=== PATIENT | female | born 1950 | race Caucasian/White ===

== ENCOUNTER 2018-09-16 12:50 | Outpatient (REF) | payer OTHER, MEDICARE, SELFPAY ==
--- NOTE | 2018-09-16 11:45 | PAPFT_PTH ---
PATIENT: Zoie Castellanos LOC: [facility]#:[id number] AGE/SX: 67/F ROOM: RE09/16/[address]: Roxane Moore : 1950 BED: DIS: 09/16/2018 SPEC #: [id number] RECD: 09/19/18 12:56 STATUS: ANA RECitlali #: [id number] EDGAR: 09/16/18 11:[address]: Rxoane Moore DEPT: [facility] Cytology RECD BY: Alyce Nguyen ENTERED: 09/19/18 12:57 SP TYPE: PAPFT KLAUDIA DR: Shaheen Moralez Tissues: 1 - CX/ENDOCX FOR PAP SMEARS Procedures: PAP THIN PREP/UVM Screening HPV DNA PROBE Comments: [id number]
== END 2018-09-16 13:10 ==
LOC: NCHCN 12:50
PROVIDERS: PCP Internal Medicine; Visit Provider Nurse Practitioner Family
DX: Z12.4 Encounter for screening for malignant neoplasm of cervix (principal); Z11.51 Encounter for screening for human papillomavirus (HPV); Z01.419 Encounter for gynecological examination (general) (routine) without abnormal findings
CPT/HCPCS: 88142; 87624

== ENCOUNTER 2018-09-23 00:35 | Outpatient (CLI) | payer OTHER, MEDICARE, SELFPAY ==
--- NOTE | 2018-09-23 10:36 | DI.MAMMO_ITS ---
SYMPTOM/DIAGNOSIS: SCREENING, Z12.39 MAMMOGRAMS: Mammograms were interpreted according to the usual protocol including computer analysis with CAD system, tomosynthesis and C view imaging. Comparison is made with prior examinations. Breast density, Category B. No suspicious masses or microcalcifications are seen. There is no definite evidence of malignancy. IMPRESSION: Negative mammogram. Routine screening is recommended. Category 1. MQSA ASSESSMENT OF FINDINGS: Negative. Category 1. Patient will receive a letter notifying them of these results. BI-RADS category B. There are scattered areas of fibroglandular density.
== END 2018-09-23 00:55 ==
PROVIDERS: PCP Internal Medicine; Visit Provider Nurse Practitioner Family
DX: Z12.31 Encounter for screening mammogram for malignant neoplasm of breast (principal)
CPT/HCPCS: 77063; 77067

== ENCOUNTER 2020-03-25 08:13 | Outpatient (CLI) | payer OTHER, MEDICARE, SELFPAY ==
--- NOTE | 2020-03-25 14:50 | DI.RAD_ITS ---
EXAM: XR KNEE LT 3V AP,LAT,ANU CLINICAL HISTORY: LT KNEE OA,M17.9, LT KNEE PAIN. TECHNIQUE: 2D digital imaging was performed. COMPARISON: CR CHEST 2 VIEWS PA,LAT from 03/23/2016 FINDINGS: BONES: No acute fracture is present. No bony destructive lesion is seen. JOINTS: The knee is normally aligned. There is a small joint effusion. There is mild narrowing of th e medial and lateral femoral tibial joints. SOFT TISSUE: Normal. IMPRESSION: Mild narrowing of the femoral tibial joint. Small joint effusion. DATA REPOSITORY: RADIATION DOSE DELIVERED:
== END 2020-03-25 08:33 ==
PROVIDERS: PCP Internal Medicine; Visit Provider Internal Medicine
DX: M17.12 Unilateral primary osteoarthritis, left knee (principal); M25.562 Pain in left knee; M25.462 Effusion, left knee; M25.862 Other specified joint disorders, left knee
CPT/HCPCS: 73562

== ENCOUNTER 2020-03-29 21:48 | Outpatient (REF) | payer OTHER, MEDICARE, SELFPAY ==
[2020-04-01 10:45] LABS: Lyme Ab w Rflx to Lyme Confirm Negative (Negative)
[2020-04-02 20:52] LABS: Anaplasma phagocytophilum Negative (Negative); B. miyamotoi PCR Negative (Negative); Babesia divergens/MO-1 Negative (Negative); Babesia duncani Negative (Negative); Babesia microti Negative (Negative); Ehrlichia chaffeensis Negative (Negative); Ehrlichia ewingii/canis Negative (Negative); Ehrlichia muris eauclairensis Negative (Negative)
== END 2020-03-29 22:08 ==
LOC: NCHCN 21:48
PROVIDERS: PCP Internal Medicine; Visit Provider Internal Medicine
DX: M25.462 Effusion, left knee (principal)
CPT/HCPCS: 87798; 86618

== ENCOUNTER 2020-12-06 09:31 | Outpatient (REF) | payer OTHER, MEDICARE, SELFPAY ==
[2020-12-06 14:00] LABS: Calculated LDL 88 mg/dL (<100); Cholesterol 189 mg/dL (<200); HDL Cholesterol 90 mg/dL (40-60); Triglyceride 58 mg/dL (<150)
== END 2020-12-06 09:32 | disposition home or self-care (01) ==
LOC: NCHCN 09:31
PROVIDERS: PCP Internal Medicine; Visit Provider Internal Medicine
DX: Z13.220 Encounter for screening for lipoid disorders (principal)
CPT/HCPCS: 80061

== ENCOUNTER 2020-12-13 04:03 | Outpatient (CLI) | payer OTHER, MEDICARE, SELFPAY ==
--- NOTE | 2020-12-13 | DI.MAMMO_ITS ---
EXAM: MG MAMMO SCREENING CLINICAL HISTORY: SCREENING,Z12.39 TECHNIQUE: Bilateral full field digital CC and MLO mammographic images were obtained with 3D tomosyn thesis and utilizing computer aided detection (CAD). COMPARISON: Available for comparison. FINDINGS: Masses/Architectural Distortion: None seen. Microcalcifications: No suspicious pleomorphic-type are seen. Skin Thickening/Nipple Retraction: None. IMPRESSION: 1. No significant interval change with no specific features of malignancy noted. 2. Unless there is more urgent need, screening mammography is recommended, as per [employer] guidelines. BI-RADS Category 1 - Negative Breast Density - Category B - Scattered areas of fibroglandular density Breast density category C or D implies that the patient has dense breast tissue. Dense breast tissue is very common and is not abnormal but dense breast tissue can make it harder to find cancer on a ma mmogram. Also, dense breast tissue may increase their breast cancer risk. This information about the result of the mammogram report was provided to the patient to raise their awareness. Use this report when you speak with the patient about their risks for breast cancer, which includes their family hist ory. At that time, you may recommend for more screening tests (Ultrasound or MRI) as they might be us eful based on their risk. A negative radiographic report should not delay biopsy if a dominant or clinically suspicious mass is present. Up to ten percent of cancers are not identified on mammography. A negative report may reinforce clinical impression. Adenosis and dense breasts may obscure an underlying neoplasm. False positive reports average 6 to 10%. Patient will receive a letter notifying them of these results.
== END 2020-12-13 04:23 ==
PROVIDERS: PCP Internal Medicine; Visit Provider Internal Medicine
DX: Z12.31 Encounter for screening mammogram for malignant neoplasm of breast (principal)
CPT/HCPCS: 77063; 77067

== ENCOUNTER 2020-12-30 01:47 | Outpatient (CLI) | payer OTHER, MEDICARE, SELFPAY ==
--- NOTE | 2020-12-30 | DI.RAD_ITS ---
EXAM: XR KNEE LT 3V AP,LAT,ANU CLINICAL HISTORY: LT POPLITEAL CYST,M71.22,OA LT KNEE,M17.9. TECHNIQUE: 2D digital imaging was performed. COMPARISON: CR XR KNEE LT 3V AP,LAT,ANU from 03/25/2020 FINDINGS: There is no evidence fracture but there is a significant joint effusion indicating internal derangeme nt. There is soft tissue defect anteriorly over the patella, possibly artifact versus avulsion soft tissues. No patellar fracture or displacement. There are moderate osteoarthritic degenerative poole es in the medial compartment and mild degenerative changes in the lateral compartment. Mild degenera tive changes in the patellofemoral compartment. IMPRESSION: DATA REPOSITORY: RADIATION DOSE DELIVERED:
== END 2020-12-30 02:07 ==
PROVIDERS: PCP Internal Medicine; Visit Provider Internal Medicine
DX: M25.562 Pain in left knee (principal); M17.12 Unilateral primary osteoarthritis, left knee; M71.22 Synovial cyst of popliteal space [Baker], left knee; M25.462 Effusion, left knee
CPT/HCPCS: 73562

== ENCOUNTER 2021-05-02 07:10 | Day surgery (SDC) | payer OTHER, MEDICARE, SELFPAY ==
--- NOTE | 2021-05-01 15:23 | W.COLOREPORT ---
Date of service: 05/02/21 Time of Service: 08:54 Colonoscopy Report Date of procedure: 05/02/21 Pre-op diagnosis general: Sessile serrated adenoma in 2016 Post-op diagnosis procedure note: other (polyp/diverticula ) Surgeon: Twila Sawyer Anesthesia Type: General:No Airway Estimated blood loss (mL): 0 Pathology: other Complications: None Disposition: same day Prep: Miralax/Dulcolax Retraction Time: 10 mins Procedure Description: After informed consent was obtained the patient was taken to the procedure room and placed in a left decubitous position. Monitors were applied and a time out was done. The patients name, date of , procedure, allergies to medications and metal in their body was reviewed. The patient was then sedated. Once sedated and comfortable a rectal exam was done. External exam was normal. Internal exam revealed a normal sphincter tone and no palpable masses. The scope was then introduced and retrofelexed. no internal hemorrhoids were identified. The scope was then advanced to the cecum w/out difficulty. The TI and appendiceal orifice were identified. The prep was good. The scope was then slowly retracted over 10 minutes back into the rectum. And severe diverticula confined to the sigmoid colon. There is no signs of active bleeding or infection. She has a flat 5 mm polyp in the cecum adjacent to the appendiceal orifice. This is removed with a cold biting forcep. All specimen is retrieved and no bleeding is noted. There are no other polyps visualized today. The scope was removed and the patient was woken up and taken back to Same day surgery in stable condition. The patient tolerated the procedure well and there were no immediate complications. Follow up: The patient should follow up in 5 years unless they develop changes in bowel habits or other new gastrointestinal complaints.
--- NOTE | 2021-05-01 15:23 | W.PM.DSUDISC ---
Discharge Plan Disposition Patient Disposition: HOME Condition: Good Discharge Details Reason For Visit: colon scope Attending Provider: Twila Sawyer Primary Care Provider: Shaheen Moralez Home Meds and New Rx's Prescriptions: Continued meloxicam 15 mg tablet 15 mg PO DAILY RF: 0 multivitamin Tablet 1 tab PO DAILY RF: 0 Discontinued polyethylene glycol 3350 17 gram/dose powder 238 g PO ONCE Qty: 238 RF: 0 bisacodyl [Dulcolax (bisacodyl)] 5 mg tablet,delayed release (DR/EC) 5 mg PO ONCE Qty: 4 RF: 0 Discharge Instructions Additional Instructions: DSU Colonoscopy Post-Op Instructions Instructions for Everyone who is given Anesthesia: For your safety, please do the following for the next twenty-four (24) hours: *Do Not operate a motor vehicle (car, truck, motorcycle, etc.) *Do Not drink alcoholic beverages or use any recreational drugs for the first 24 hours or while taking pain medications. The medications in your body may have a reaction that can be dangerous. *Do Not make any important decisions or sign any important papers. Findings:small polyp diverticula Follow up:repeat 5 yrs 1. No lifting over 20 pounds or strenuous activity for the first 24 hours after your procedure. After 24 hours there are no restrictions on your activity but you may feel fatigued for a few days. 2. After you arrive home you may have a light meal and return to your normal diet as you can tolerate it without feeling sick to your stomach. 3. You may have a bloated, gaseous feeling in your belly (abdomen) after a colonoscopy. Passing gas and belching will help. Walking or lying down on your left side with your knees flexed may relieve the discomfort. Call the office at [phone] (Office) or [phone] (Hospital) right away if you notice any of the following: a.Vomiting of blood or ?coffee ground stools?. b.Rectal bleeding 1Tbsp, blood clots or continuous bleeding. c.Severe belly (abdominal) pain. d.A hard distended belly (abdomen) and an inability to pass gas. 4. Please don?t expect to have a normal BM (bowel movement) for 2-3 days after your procedure. 5. If there are questions regarding the findings of your procedure, please contact your doctor 6. If you are unable to contact your doctor with a problem, contact the [facility] at [phone]. 7. Continue all your regular medications unless directed otherwise. I understand the above instructions and have no questions. Signature of Patient or Adult Escort Name of Responsible Adult Escort Signature of Nurse Date/Time Stand Alone Forms: Anesthesia Discharge Inst. Activity:: see above Diet:: see above Discharge Orders Discharge Orders: Discharge Order (Routine); Ordered 05/01/21 Ordered By: Twila Sawyer DS: Diagnosis Discharge Diagnosis (1) Adenomatous polyps: Status: Acute (2) Diverticula of colon: Status: Acute
[2021-05-02 07:23] VITALS: BP 128/74; PULSE 73; RESP 16; TEMP 36.4; O2SAT 98
[2021-05-02] MEDS: Lactated Ringers 1,000 ML 80 ML IV (07:40)
--- NOTE | 2021-05-02 07:49 | W.ANESPRE ---
General Info Date of Service Date Performed: 05/02/21 Height: 5 ft 2 in Weight: 51.766 kg Body Mass Index (BMI): 20.8 Surgical Procedure: Operation Date: 05/02/21 08:20 Proposed Procedures Side Surgeon alba Sawyer, Meds Allergies and Home Medications Allergies Allergy/AdvReac Type Severity Reaction Status Date / Time No Known Allergies Allergy Verified 05/02/21 07:29 Home Medication Medication Instructions Recorded meloxicam 15 mg tablet 15 mg PO DAILY 01/08/21 multivitamin 1 tab PO DAILY 01/08/21 bisacodyl 5 mg tablet,delayed 5 mg PO ONCE #4 tab 04/25/21 release polyethylene glycol 3350 17 238 g PO ONCE #238 g 04/25/21 gram/dose oral powder Current Visit Medications: Current Medications Generic Name Dose Route Start Last Admin Trade Name Freq PRN Reason Stop Dose Admin Hyoscyamine Sulfate 0.125 mg 05/01/21 15:22 Hyoscyamine 0.125 Mg Sl/Oral/Chew SL DIRECTED PRN Ringer's Solution 1,000 mls @ 80 mls/hr 05/02/21 06:00 05/02/21 07:40 IV 05/31/21 23:59 80 mls/hr INFUSION REY Administration IV Miscellaneous Supplies 1 each 05/02/21 06:00 Iv Access IV 05/31/21 23:59 DIRECTED REY Ondansetron HCl 4 mg 05/01/21 15:22 Ondansetron 4 Mg/2 Ml Vial IVP Q4H PRN PRN Nausea / Vomiting Sodium Chloride 0 ml 05/02/21 06:00 Normal Saline Flush 10 Ml Syr IV 05/31/21 23:59 PRN PRN Sodium Chloride 0 ml 05/02/21 06:00 Normal Saline 10 Ml Vial IJ 05/31/21 23:59 DIRECTED PRN Sterile Water 0 ml 05/02/21 06:00 Water,Injection,Sterile 10 Ml Vial IJ 05/31/21 23:59 DIRECTED PRN PFSH Active Problems Active Problems: Problem Status Onset Code Knee effusion, left M25.462 Osteoarthritis of left knee M17.12 Medical History Medical History Cervical disc disorder with radiculopathy Cervical dysplasia NOAH I (cervical intraepithelial neoplasia I) Hepatitis A History of adenomatous polyp of colon Insomnia Knee effusion, left Nocturnal leg cramps Osteoarthritis of hands, bilateral Osteoarthritis of left knee Polyp of ascending colon Stress incontinence Tobacco Smoking/Tobacco Use Status: Former Tobacco Use Alcohol Alcohol Intake: current Alcohol intake frequency: 0-2 drinks per day Alcohol type: wine Substance Use Substance use: Never Substance use type: does not use Vital Signs and Lab Results Vital Signs Most Recent Vital Signs in EMR: Most Recent Vital Signs Temp Pulse Resp BP Pulse Ox 36.4 C L 73 16 128/74 98 05/02/21 07:23 05/02/21 07:23 05/02/21 07:23 05/02/21 07:23 05/02/21 07:23 Lab Results Blood Type / Crossmatch: No Data to Display Complete Blood Count: No Data to Display Complete Metabolic Panel: No Data to Display Liver Function Panel: No Data to Display Coagulation Panel: No Data to Display Cardiac Panel: No Data to Display Arterial Blood Gas: No Data to Display Venous Blood Gas: No Data to Display Pancreas Panel: No Data to Display Thyroid Panel: No Data to Display Infectious Disease: No Data to Display Blood Cultures: No Data to Display Toxicology Panel: No Data to Display Anesthesia Assessment and Plan Anesthesia History Personal History: No History of Anesthesia Complications Family History: No Family History of Anesthesia Complications Exercise Tolerance Exercise Tolerance: Metabolic Equivalents>4 Pertinent Negatives Pertinent Negatives: No Symptoms of GERD, No Major Cardiovascular Symptoms or Complaints, No Major Pulmonary Symptoms or Complaints and No History of CVA/TIA Cardiac & Pulmonary Exam Cardiac Exam: Normal S1/S2 Heart Sounds Pulmonary Exam: Clear Bilateral Breath Sounds Airway Exam Known Difficult Airway: No Mallampati Class: 1 Mouth Opening: Normal (> 3cm) Thyromental Distance: Greater than 3 cm Neck Range of Motion: Full ROM Neck Circumference: Normal Teeth Condition: Normal Dentition ASA Classification ASA Score: ASA 2 Emergency Case?: No NPO Status NPO Status: NPO Clears >2 hours, Solids >8 hours Anesthesia Plan Resuscitation Status: Full Code Anesthesia Technique: General Anesthesia Airway Planned: Natural Airway Monitors Used: Standard Monitors
[2021-05-02 08:12] VITALS: BMI 20.8
--- NOTE | 2021-05-02 08:29 | BOWEL_PTH ---
PATIENT: Zoie Castellanos LOC: [facility] U#:[id number] AGE/SX: 70/F ROOM: RE05/02/[address]: Twila Sawyer : 1950 BED: DIS: 05/02/2021 SPEC #: [id number] RECD: 05/02/21 12:19 STATUS: ANA REQ #: [id number] EDGAR: 05/02/21 08:[address]: Twila Sawyer DEPT: Surgical Specimen RECD BY: Alyce Nguyen ENTERED: 05/02/21 12:20 SP TYPE: Bowel OTHR DR: Shaheen Moralez Tissues: 1 - BIOPSY BOWEL Procedures: GROSS AND MICRO LEVEL 4 Comments: [id number]
[2021-05-02 08:52] VITALS: BP 109/71; PULSE 63; RESP 16; TEMP 36.3; O2SAT 98
--- NOTE | 2021-05-02 09:02 | W.ANESPOSTOP ---
Postoperative Evaluation Date, Time and Location Date Performed: 05/02/21 Time Performed: 09:02 Patient Location: Day Surgery Unit Vital Signs Most Recent Imported Vital Signs: Most Recent Vital Signs Temp Pulse Resp BP Pulse Ox 36.3 C L 63 16 109/71 98 05/02/21 08:52 05/02/21 08:52 05/02/21 08:52 05/02/21 08:52 05/02/21 08:52 Pain Score Most Recent Pain Score: Most Recent Pain Score Pain Level 0 05/02/21 08:52 Assessment Mental Status: Awake (Alert & Oriented to Patient Baseline) Airway and Respiratory Function: Patent airway with normal (patient baseline) respiratory exam Cardiovascular Function: Hemodynamically Stable Hydration Status: Adequately Hydrated Nausea & Vomiting: No Nausea or Vomiting Pain: Pt. Denies Any Pain Peripheral Nerve Block: Patient did not receive a nerve block
[2021-05-02 09:29] VITALS: BP 130/74; PULSE 54; RESP 16; TEMP 36; O2SAT 98
== END 2021-05-02 09:45 | disposition home or self-care (01) ==
PROVIDERS: PCP Internal Medicine; Visit Provider Surgery
PROC: 0DJD8ZZ Inspection of Lower Intestinal Tract, Via Natural or Artificial Opening Endoscopic (ICD-10-PCS; CPT 45378; principal; 2021-05-02 08:15)
DX: Z12.11 Encounter for screening for malignant neoplasm of colon (principal); D12.0 Benign neoplasm of cecum; K57.30 Diverticulosis of large intestine without perforation or abscess without bleeding; Z86.010 Personal history of colon polyps
CPT/HCPCS: 45380; 88305

== ENCOUNTER 2022-01-13 21:55 | Outpatient (REF) | payer OTHER, SELFPAY ==
[2022-01-13 14:22] LABS: Anion Gap 5.7 mmol/L (3-11); BUN 24 mg/dL (7-18); CO2 30.3 mmol/L (21.0-32.0); CREATININE 0.7 mg/dL (0.55-1.02); Calcium 8.8 mg/dL (8.5-10.1); Chloride 105 mmol/L (98-107); Glucose 79 mg/dL (74-106); Potassium 4.7 mmol/L (3.5-5.1); Sodium 141 mmol/L (136-145)
== END 2022-01-13 21:56 | disposition home or self-care (01) ==
LOC: NCHCN 21:55
PROVIDERS: PCP Internal Medicine; Visit Provider Nurse Practitioner Family
DX: U07.1 COVID-19 (principal)
CPT/HCPCS: 80048

== ENCOUNTER 2022-05-07 17:13 | Outpatient (CLI) | payer OTHER, SELFPAY ==
--- NOTE | 2022-05-07 18:21 | DI.RAD_ITS ---
Exam(s) XR ANKLE RT COMPLETE XR TIB/FIB RT EXAM: XR TIB/FIB RT CLINICAL HISTORY: ANKLE JOINT PAIN RIGHT TECHNIQUE: COMPARISON: CR,XR XR ANKLE RT COMPLETE from 05/07/2022 FINDINGS: Two views of the leg and three views of the ankle were obtained. The ankle mortise is well maintaine d. There are mild degenerative changes of the joints of the ankle. No other bony or soft tissue abn ormality seen. IMPRESSION: RADIATION DOSE DELIVERED: Total DLP
--- NOTE | 2022-05-07 18:53 | DI.VRAD_ITS ---
PROCEDURE INFORMATION: Exam: XR Right Tibia and Fibula Exam date and time: 05/07/2022 6:15 PM Age: 71 years old Clinical indication: Lower leg; Right; Patient HX: Ankle joint pain, no known trauma TECHNIQUE: Imaging protocol: Radiologic exam of the Right tibia and fibula. Views: 2 views. COMPARISON: CR XR ANKLE RT COMPLETE 05/07/2022 6:13 PM FINDINGS: Bones/joints: Age-indeterminate deformity of the distal fibula No dislocation Soft tissues: Normal. IMPRESSION: Age-indeterminate deformity of the distal fibula Dictated and Authenticated by: Sebastian Vazquez MD. Ordering:TESSY Polanco MD
--- NOTE | 2022-05-07 18:53 | DI.VRAD_ITS ---
PROCEDURE INFORMATION: Exam: XR Right Ankle Exam date and time: 05/07/2022 6:13 PM Age: 71 years old Clinical indication: Ankle; Right; Patient HX: Akkle joint pain, no known trauma TECHNIQUE: Imaging protocol: Radiologic exam of the Right ankle. Views: 3 or more views. COMPARISON: No relevant prior studies available. FINDINGS: Bones/joints: Age-indeterminate deformity of the distal fibula. No dislocation Osteopenia. Mild calcaneal spurring and mild degenerative changes. Soft tissues: Normal. IMPRESSION: Age-indeterminate deformity of the distal fibula. Dictated and Authenticated by: Sebastian Vazquez MD. Ordering:TESSY Polanco MD
== END 2022-05-07 17:33 ==
PROVIDERS: PCP Internal Medicine; Visit Provider Nurse Practitioner Family
DX: M25.571 Pain in right ankle and joints of right foot (principal); M19.071 Primary osteoarthritis, right ankle and foot
CPT/HCPCS: 73590; 73610

== ENCOUNTER 2022-05-08 09:41 | Outpatient (REF) | payer OTHER, SELFPAY ==
[2022-05-07 21:07] LABS: Abs Immature Grans 0.02 10^3/uL (0.0-0.06); Absolute Basophil Count 0.05 10^3/uL (0.0-0.2); Absolute Eosinophil Count 0.22 10^3/uL (0.0-0.7); Absolute Monocyte Count 0.74 10^3/uL (0.1-0.8); Absolute Neutrophil Count 5.63 10^3/uL (1.2-6.7); Basophils % 0.5; ESR 30 mm/hr (0-30); Eosinophils % 2.2; HCT 36.4 % (36.0-46.0); HGB 12.1 g/dL (11.2-15.7); Immature Grans % 0.2; Lymphocytes % 34.4; MCHC 33.2 % (32.0-36.0); MCV 99 fL (80-95); MPV 10.4 fL (8.0-11.0); Monocytes % 7.3; Neutrophils % 55.4; Platelet Count 272 10^3/uL (130-400); RBC 3.67 10^6/uL (3.93-5.22); RDW 11.6 % (11.7-14.6); RDW-SD 42.5 fL; WBC 10.16 10^3/uL (4.4-10.8)
[2022-05-07 21:13] LABS: C-Reactive Protein 0.48 mg/dL (0.0-0.3); Uric Acid 4.7 mg/dL (2.6-6.0)
--- OUTSIDE RECORDS SUMMARY | 2022-05-08 09:51 | XMS_ITS | Encounter Summary ---
:1950 Author Organization [facility] Address [address] [place] [address] Care Team Providers Name Role Phone Shaheen Moralez MD Primary Care Provider Encounter Details Date Type Department Care Team Description 10/07/2015 Results Only [facility] Flor Wood, [address] [place] [address] [place] [address] (Wo rk) Social History Tobacco Use Types Packs/Day Years Used Date Never Assessed Sex Assigned at Date Recorded Not on file documented as of this encounter Plan of Treatment Not on filedocumented as of this encounter Procedures Procedure Name Priority Date/Time Associated Diagnosis Comme [facility] SURGICAL PATHOLOGY Routine 10/07/2015 17:32 Resul ts for this EST procedure are i n the results section. documented in this encounter Results SURGICAL PATHOLOGY (10/07/2015 17:32 EST) Pathology Report: SURGICAL PATHOLOGY REPORT [facility] Reports generated via electronic interface contain amy ginal data; LABORATORY however they are lacking the format of the original re port. SERVICES Caution should be taken when reading/interpreting unfo rmatted reports. Name: ? ZOIE CADE ? Accession #: ? [id number] ? : ? 1950 (Age: 8 2) ??F ? Collect Date: ? 10/07/2015 ? Location: ? [facility] ? Receive Date: ? 6 ? Provider: FLOR WOOD MD Copy to: SHAHEEN MORALEZ MD ? Final Pathologic Diagnosis: A. COLON, ASCENDING, POLYP, BIOPSY: - ??Fragment of sessile serrated adenoma. B. COLON, SIGMOID, POLYPS, BIOPSY: - ??Fragments of hyperplastic polyps. Document reviewed and electronically signed by: JOSE SANCHEZ MD Report ??Date: 10/10/2015 12:43 By the signature above, the attending physician certif ies that he/she has personally conducted a gross and/or microscopic examin ation of the described specimens and rendered or confirmed the above diagnosi s. Specimen(s) Received: A. ??Ascending colon polyp B. ??Sigmoid colon x4 Clinical History: Screening Gross Description: A. ?Received in formalin labelled with proper p atient identification (initials C, D) and 1. ascending colon is a single l ight roa firm tissue fragment (0.4 x 0.3 x 0.2 cm). Submitted intact in A1. B. ?Received in formalin labelled with proper p atient identification (initials C, D) and 2. sigm oid polyp x4 are four roa tissues (0.6 x 0.4 x 0.2 cm to 0.1 x 0.1 x 0.1 cm). Entirely submitted in B1 an d B2. Vincent Limon 10/08/2015 8:35 AM End of Report Specimen Performing Organization Address City/State/ZIP Code Phon e Number [facility] [address] [place] [address] SERVICES documented in this encounter Visit Diagnoses Not on filedocumented in this encounter Care Teams Director Of Regulatory Affairs Relationship Specialty Start Date End Date Shaheen Moralez MD PCP - General 02/24/10 [address] [place] [address] documented as of this encounter
--- OUTSIDE RECORDS SUMMARY | 2022-05-08 09:51 | XMS_ITS | Encounter Summary ---
:1950 Author Organization [facility] Address [address] [place] [address] Care Team Providers Name Role Phone Shaheen Moralez MD Primary Care Provider Encounter Details Date Type Department Care Team Description 05/02/2021 Lab Requisition [facility] Twila Sawyer for Pathology & M, DO screening for Laboratory Medicine - [address]ant neoplasm of [facility] [address] colon [address] [place] [id number] Social History Tobacco Use Types Packs/Day Years Used Date Never Assessed Sex Assigned at Date Recorded Not on file documented as of this encounter Plan of Treatment Not on filedocumented as of this encounter Procedures Procedure Name Priority Date/Time Associated Diagnosis Comme nts SURGICAL PATHOLOGY Today 05/02/2021 8:29 EDT Encounter for R esults for this screening for procedure are in malignant neoplasm the resul ts of colon section. documented in this encounter Results SURGICAL PATHOLOGY (05/02/2021 8:29 EDT) Note to Patient The following [facility] pathology results CENTER have been interpreted LABORATORY by your pathologist SERVICES and may be available to you before your health provider has had the opportunity to review them. Please allow time for your provider to receive these results and explore management options, if applicable. Final Diagnosis A. COLON, CECUM, POLYP, BIOPSY: [facility] DICAL - Tubular adenoma. [facility]ENTER LABORATORY SERVICES Attestation There was significant [facility] Electr onically resident/fellow CENTER signed by Ab key Malone involvement in the LABORATORY Flaquito Tejeda on diagnostic evaluation SERVICES 021 at 1023 of this case. By the signature below, the attending physician certifies that they have personally conducted a gross and/or microscopic examination of the described specimens and rendered or confirmed the above diagnosis. Clinical History Screening, history of [facility] polyps [facility]ENTER LABORATORY SERVICES Gross Description A. [facility] Received in formalin samira d with proper patient identification (initials C, D) and cecal polyp is a single roa polypoid tissue (0.2 x 0.2 x 0.1 cm). Submitted intact in A1. CENTER LABORATORY BAILEE WOOD([facility]) 05/02/2021 16:06 [place] Resident/Fellow: Grant Lacy, [facility] SERVICES Performing Lab [facility] LAB [facility] SERVICES Scanned Images [facility]OR[facility] SERVICES Specimen Tissue - Cecum structure (body structure ) Performing Organization Address City/State/ZIP Code Phon e Number [facility] [address] [place] [address] SERVICES documented in this encounter Visit Diagnoses Diagnosis Encounter for screening for malignant ne oplasm of colon Special screening for malignant neoplasm s, colon documented in this encounter Care Teams Mobile Unit Assistant Relationship Specialty Start Date End Date Shaheen Moralez MD PCP - General 02/24/10 [address] [place], [place] [id number] documented as of this encounter
--- OUTSIDE RECORDS SUMMARY | 2022-05-08 09:51 | XMS_ITS | Encounter Summary ---
:1950 Author Organization [facility] Address [address] [place] [address] Care Team Providers Name Role Phone Shaheen Moralez MD Primary Care Provider Encounter Details Date Type Department Care Team Description 10/07/2015 Hospital Encounter [facility] - S Unknown, Pro Colleen gregg MD [address] [facility] [phone] [place] [address] (Work) [phone] Social History Tobacco Use Types Packs/Day Years Used Date Never Assessed Sex Assigned at Date Recorded Not on file documented as of this encounter Discharge Disposition Disposition Code Departure Means Destination Home or Self Assisted documented in this encounter Plan of Treatment Not on filedocumented as of this encounter Visit Diagnoses Not on filedocumented in this encounter Care Teams Technical Support Manager Relationship Specialty Start Date End Date Shaheen Moralez MD PCP - General 02/24/10 [address] [place] [address] documented as of this encounter
--- OUTSIDE RECORDS SUMMARY | 2022-05-08 09:51 | XMS_ITS | Encounter Summary ---
:1950 Author Organization [facility] Address [address] [place] [address] Care Team Providers Name Role Phone Shaheen Moralez MD Primary Care Provider Encounter Details Date Type Department Care Team Description 03/30/2020 Lab Requisition [facility] Outr Resulting Lab, Pathology & Laboratory Provider [facility] [address], [place] [id number] Social History Tobacco Use Types Packs/Day Years Used Date Never Assessed Sex Assigned at Date Recorded Not on file documented as of this encounter Plan of Treatment Not on filedocumented as of this encounter Procedures Procedure Name Priority Date/Time Associated Diagnosis Comme nts LYME AB Routine 03/29/2020 14:25 EDT Results for this procedure are i n the results section . documented in this encounter Results LYME AB (03/29/2020 14:25 EDT) Pathologist Sig nature Lyme Ab Negative Negative [facility] Comment: LABORATORY SERVICES New 3rd generation assay in use 02/14/2020 Specimen Blood - Venous blood (substance) Performing Organization Address City/State/ZIP Code Phon e Number [facility] [address] [place] [address] SERVICES documented in this encounter Visit Diagnoses Not on filedocumented in this encounter Care Teams Chimney Mechanic Relationship Specialty Start Date End Date Shaheen Moralez MD PCP - General 02/24/10 [address] [place], [place] [id number] documented as of this encounter
--- OUTSIDE RECORDS SUMMARY | 2022-05-08 09:51 | XMS_ITS | Encounter Summary ---
:1950 Author Organization [facility] Address [address] [place] [address] Care Team Providers Name Role Phone Shaheen Moralez MD Primary Care Provider Encounter Details Date Type Department Care Team Description 08/28/2016 Results Only [facility]- Kathleen Sapp, [employer] [address] [place], [place] [phone] (Wo rk) Social History Tobacco Use Types Packs/Day Years Used Date Never Assessed Sex Assigned at Date Recorded Not on file documented as of this encounter Plan of Treatment Not on filedocumented as of this encounter Procedures Procedure Name Priority Date/Time Associated Diagnosis Comme nts PAP TEST- RESULT Routine 08/28/2016 0:00 EST Resu lts for this ONLY procedure are i n the results section. documented in this encounter Results PAP TEST- RESULT ONLY (08/28/2016 0:00 EST) Pathology Report: CYTOPATHOLOGY REPORT [facility] Reports generated via electronic interface contain amy ginal data; SERVICES however they are lacking the format of the original re port. Caution should be taken when reading/interpreting unfo rmatted reports. Name: ? ZOIE CADE ? Accession #: ? [id number] ? : ? 1950 (Age: [age]) ??F ?Collect Da te: ? 08/28/2016 ? Location: ? [facility] ? Receive Date: ? 016 ? Provider: KATHLEEN ACEVEDO [employer] Copy to: ? Final Report SPECIMEN ADEQUACY ? Satisfactory for Evaluation - transformation zone component present GENERAL CATEGORIZATION ? Negative for Intraepithelial Lesion or Malignan cy ?? Previous Gynecologic Pathology: NOAH I: 2009 Specimen/Source: ??Pap Test, Cervix/Endocervix, ThinPr ep Imaging System with manual evaluation Document reviewed and electronically signed by: ? Kiara Dias, CT(ASCP) ? Report ??Date: 09/03/2016 12:48 HPV with Pap Test ? Date Ordered: ? 09/03/2016 ? Status: ?? Signed Out ?Date Complete: ? 09/08/2016 ? By: ??Sys tem Interface ? Date Reported: ? 09/08/2016 ? Interpretation RESULT: Negative for HPV. No E6 or E7 mRNA is detected from HPV types 16,18,31,3 3,35, 39,45,51,52,56,58,59,66, and 68 by insurance risk manager media kiko amplification. Comments Document reviewed and electronically signed by: ? System Interface ? Report date: 09/08/2016 By the signature above, the attending physician certif ies that he/she has personally conducted a gross and/or microscopic examin ation of the described specimens and rendered or confirmed the above diagnosi s. End of Report Specimen Performing Organization Address City/State/ZIP Code Phon e Number [facility] [address] [place] [id number] SERVICES documented in this encounter Visit Diagnoses Not on filedocumented in this encounter Care Teams Tonal Regulator Relationship Specialty Start Date End Date Shaheen Moralez MD PCP - General 02/24/10 [address] [place] [address] documented as of this encounter
--- OUTSIDE RECORDS SUMMARY | 2022-05-08 09:52 | XMS_ITS | Encounter Summary ---
:1950 Author Organization [facility] Address [address] [place] [address] Care Team Providers Name Role Phone Shaheen Moralez MD Primary Care Provider Encounter Details Date Type Department Care Team Description 07/21/2010 Results Only [facility]- PRISM Flex East MD [phone] [place] [address] Social History Tobacco Use Types Packs/Day Years Used Date Never Assessed Sex Assigned at Date Recorded Not on file documented as of this encounter Plan of Treatment Not on filedocumented as of this encounter Procedures Procedure Name Priority Date/Time Associated Diagnosis Comme nts CYTOPATHOLOGY Routine 07/21/2010 0:00 EST Results for this procedure are i n the results section . documented in this encounter Results CYTOPATHOLOGY (07/21/2010 0:00 EST) Pathology Report: CYTOPATHOLOGY REPORT ? [facility] ? LAB Reports generated via electr [email or web address] interface contain original data; ? however they are lacking the format of the original report. ? Caution should be taken when reading/interpreting unformatted reports. ? Name: ? ZOIE CADE ? Accession #: ? [id number] ? : ? 1950 (Age: 59) ??F ?Collect Date: ? 07/21/2010 ? Location: ? [facility] ? R eceive Date: ? 07/23/2010 ? Provider: FLEX EAST MD ? Copy to: ? Final Report ? SPECIMEN ADEQUACY ? Satisfactory for Eval uation ? - transformation zone compon ent present ? GENERAL CATEGORIZATION ? Epithelial Cell Abnor mality ? INTERPRETATION ? Squamous Cell Abnorma lity - Atypical squamous cells, undetermined ? significance (ASC-US). ? EDUCATIONAL NOTES/RECOMMENDA TIONS ? [facility] recommends mitali wing the 2006 Consensus Guidelines for the Management of Women with Abnormal Cervi idania Cancer Screening Tests (JLGTD, ? 2007;11(4):201-222). ??Conse nsus guidelines are available online at ? www.ASCCP.org. ? Previous Gynecologic Patholo gy: LSIL: 02/14/10 ? NOAH I: 03/18/10 ? Treatment History: Miscellan eous treatment: Endo Bx 07/13/10 NOAH I (-) ECC ? Specimen/Source: ??Pap Test, Cervix/Endocervix, ThinPrep Imaging System with ? manual evaluation ? Document reviewed and electr onically signed by: ? ANTONELLA L CIOLINO MD ? Report ??Date: 11/24/ 2010 06:56 ? HPV with Pap Test ? Date Ordered: ? 1 09/28/2009 ? Status: ?? Signed Out ?Date Complete: ? 08/04/2010 ? By: ??System Interface ? Date Reported: ? 08/04/2010 ? Interpretation ? RESULT: Negative for HPV typ es 16, 18, 31, 33, 35, 39, 45, 51, 52, ? 56, 58, 59, and 68. ? Comments ? Document reviewed and electr onically signed by: ? System Interface ? Report date: 11/29/20 10 ? By the signature above, the attending physician certifies that he/she has ? personally conducted a gross and/or microscopic examination of the described ? specimens and rendered or co nfirmed the above diagnosis. ? End of Report ? Specimen Performing Organization Address City/State/ZIP Code Phon e Number [facility] [address] [place] [address] SERVICES [facility] [address] [place] [address] documented in this encounter Visit Diagnoses Not on filedocumented in this encounter Care Teams Medical Pathologist Relationship Specialty Start Date End Date Shaheen Moralez MD PCP - General 02/24/10 [address] [place] [address] documented as of this encounter
--- OUTSIDE RECORDS SUMMARY | 2022-05-08 09:52 | XMS_ITS | Encounter Summary ---
:1950 Author Organization [facility] Address [address] [place] [address] Care Team Providers Name Role Phone Md KHOA Cartwright Primary Care Provider Unavailable Encounter Details Date Type Department Care Team Description 02/14/2010 Results Only [facility] Jaspal Moralez MD Laboratory Services - Radha [address] [place] [address] [address] [facility] [place] [address] [phone] Social History Tobacco Use Types Packs/Day Years Used Date Never Assessed Sex Assigned at Date Recorded Not on file documented as of this encounter Plan of Treatment Not on filedocumented as of this encounter Procedures Procedure Name Priority Date/Time Associated Diagnosis Comme [facility] CYTOPATHOLOGY Routine 02/14/2010 0:00 EDT Results for this procedure are i n the results section . documented in this encounter Results CYTOPATHOLOGY (02/14/2010 0:00 EDT) Pathology Report: CYTOPATHOLOGY REPORT ? [facility] ? LAB Reports generated via electr onic interface contain original data; ? however they are lacking the format of the original report. ? Caution should be taken when reading/interpreting unformatted reports. ? Name: ? MILLIE FOOTE ? Accession #: ? [id number] ? : ? 1950 (Age: 59) ??F ?Collect Date: ? 02/14/2010 ? Location: ? [facility] ? Receive Date: ? 02/17/2010 ? Provider: ?HILARY TA NNER MD ? Copy to: ? Specimen/Source: ? Pap Test, Endocervix, ThinPrep Imaging System with ? manual evaluation ? Last Menstrual Period: ? NANCY ? Previous Gynecologic Patholo gy: ? Yes: Yrs ago abnl pap ? Other: ? HPVA - HPV testing requested if ASC-US on the current ThinPrep Pap test. ? SPECIMEN ADEQUACY ? Satisfactory for Eval uation ? - transformation zone compon ent present ? GENERAL CATEGORIZATION ? Epithelial Cell Abnor mality ? INTERPRETATION ? Squamous Cell Abnorma lity - Low grade squamous intraepithelial lesion ? (LSIL). ? EDUCATIONAL NOTES/RECOMMENDA TIONS ? FA recommends follo wing the 2006 Consensus Guidelines for the Management of Women with Abnormal Cervi idania Cancer Screening Tests (JLGTD, ? 2007;11(4):201-222). ??Conse nsus guidelines are available online at ? www.ASCCP.org. ? Document reviewed and electr onically signed by: ? Vinnie Jean Paul Dannie , MD ? Report Date: ??06/18/ 2010 13:12 ? End of Report ? Specimen Performing Organization Address City/State/[facility] Code Phon e Number [facility] [address] [place] [address] SERVICES [facility] [address] [place] [address] documented in this encounter Visit Diagnoses Not on filedocumented in this encounter Care Teams Terminal Gauger Supervisor Relationship Specialty Start Date End Date Md Cartwright MD PCP - General 02/17/10 02/23/10 documented as of this encounter
--- OUTSIDE RECORDS SUMMARY | 2022-05-08 09:52 | XMS_ITS | Encounter Summary ---
:1950 Author Organization [facility] Address [address] [place] [address] Care Team Providers Name Role Phone Shaheen Moralez MD Primary Care Provider Encounter Details Date Type Department Care Team Description 04/10/2011 Results Only [facility] Jaspal Moralez MD Laboratory Services - Radha [address] [place] [address] [address] [facility] [place] [address] [phone] Social History Tobacco Use Types Packs/Day Years Used Date Never Assessed Sex Assigned at Date Recorded Not on file documented as of this encounter Plan of Treatment Not on filedocumented as of this encounter Procedures Procedure Name Priority Date/Time Associated Diagnosis Comme nts PAP TEST- RESULT Routine 04/10/2011 0:00 EDT Resu lts for this ONLY procedure are i n the results section. documented in this encounter Results PAP TEST- RESULT ONLY (04/10/2011 0:00 EDT) Pathology Report: CYTOPATHOLOGY REPORT ? [facility] ? LAB Reports generated via electr onic interface contain original data; ? however they are lacking the format of the original report. ? Caution should be taken when reading/interpreting unformatted reports. ? Name: ? RAYO, ZOIE ? Accession #: ? [id number] ? : ? 1950 (Age: 60) ??F ?Collect Date: ? 04/10/2011 ? Location: ? [facility] ? Receive Date: ? 04/13/2011 ? Provider: ?SHAHEEN REYES NNANGIE MD ? Copy to: ? Specimen/Source: ? Pap Test, Cervix, ThinPrep Imaging System with manual ?? evaluation ? Last Menstrual Period: ? yrs ago ? Previous Gynecologic Patholo gy: ? ASC-US ? NOAH I ? SPECIMEN ADEQUACY ? Satisfactory for Eval uation ? - transformation zone compon ent present ? GENERAL CATEGORIZATION ? Negative for Intraepi thelial Lesion or Malignancy ? Document reviewed and electr onically signed by: ? Kalin Selby, CT (ASCP) ? Report Date: ??08/10/ 2011 13:53 ? End of Report ? Specimen Performing Organization Address City/[facility] Phon e Number [facility] [address] [place] [address] SERVICES [facility] [address] [place] [address] documented in this encounter Visit Diagnoses Not on filedocumented in this encounter Care Teams Material Inspector Relationship Specialty Start Date End Date Shaheen Moralez MD PCP - General 02/24/10 [address] [place] [address] documented as of this encounter
== END 2022-05-08 09:42 | disposition home or self-care (01) ==
LOC: LBN 09:41
PROVIDERS: PCP Internal Medicine; Visit Provider Nurse Practitioner Family
DX: M25.571 Pain in right ankle and joints of right foot (principal)
CPT/HCPCS: 85652; 84550; 85025; 86140

== ENCOUNTER 2022-11-06 00:15 | Outpatient (CLI) | payer OTHER, BC, SELFPAY ==
--- NOTE | 2022-11-06 | DI.MAMMO_ITS ---
Exam(s) MAMMO SCREENING EXAM: MAMMO SCREENING CLINICAL HISTORY: SCREENING, Z12.31. TECHNIQUE: Bilateral full field digital CC and MLO mammographic images were obtained with 3D tomosyn thesis and utilizing computer aided detection (CAD). COMPARISON: Prior mammograms were reviewed. FINDINGS: There has been no significant change in the appearance and distribution of the fibroglandular tissue. There are no CAD designations. There are no new spiculated masses nor malignant appearing microcalcification groups. There is no significant architectural distortion nor skin thickening-retraction. IMPRESSION: No radiographic evidence of malignancy. BI-RADS Category 1 - Negative Breast Density - Category B - Scattered areas of fibroglandular density Breast density Category C or D implies that the patient has dense breast tissue. Dense breast tissue can make it harder to find cancer on a mammogram. Dense breast tissue is also associated with an incr eased risk of breast cancer. This information about the result of the mammogram report was provided to the patient to raise their awareness. Use this report when you speak with the patient about their risks for breast cancer, which includes their family history. At that time, you may recommend additional screening tests (Ultrasoun d or MRI) as these tests may add significant information. A negative radiographic report should not delay biopsy if a dominant or clinically suspicious mass is present. Up to ten percent of cancers are not identified on mammography. A negative report may reinforce clinical impression. Adenosis and dense breasts may obscure an underlying neoplasm. False positive reports average 6 to 10%. Patient will receive a letter notifying them of these results.
== END 2022-11-06 00:35 ==
LOC: DI 00:16
PROVIDERS: PCP Internal Medicine; Visit Provider Nurse Practitioner Family
DX: Z12.31 Encounter for screening mammogram for malignant neoplasm of breast (principal)
CPT/HCPCS: 77063; 77067

== ENCOUNTER 2023-04-16 09:27 | Outpatient (REF) | payer OTHER, BC, SELFPAY ==
[2023-04-16 16:20] LABS: Anion Gap 7.9 mmol/L (3-11); BUN 25 mg/dL (7-18); CO2 29.1 mmol/L (21.0-32.0); CREATININE 0.8 mg/dL (0.55-1.02); Calculated LDL 103 mg/dL (<100); Chloride 101 mmol/L (98-107); Cholesterol 205 mg/dL (<200); Estimated GFR 79.22 (mL/min/1.73m2); Glucose 89 mg/dL (74-106); HDL Cholesterol 90 mg/dL (40-60); Potassium 4.6 mmol/L (3.5-5.1); Sodium 138 mmol/L (136-145); Triglyceride 61 mg/dL (<150)
[2023-04-16 16:29] LABS: Vitamin D 25 Total 33.7 ng/mL (30-100)
== END 2023-04-16 09:28 | disposition home or self-care (01) ==
LOC: NCHCN 09:27
PROVIDERS: PCP Internal Medicine; Visit Provider Nurse Practitioner Family
DX: Z00.00 Encounter for general adult medical examination without abnormal findings (principal); I10 Essential (primary) hypertension
CPT/HCPCS: 80048; 80061; 82306

== ENCOUNTER → 2023-04-23 01:52 | Outpatient (CLI) | payer BC, OTHER, SELFPAY ==
--- NOTE | 2023-04-23 14:53 | DI.DEXA_ITS ---
Exam(s) XR DEXA BONE DENSITY W/WO AUGUSTIN EXAM: XR DEXA BONE DENSITY W/WO AUGUSTIN CLINICAL HISTORY: OSTEOPENIA,OTHER DISORDER BONE DENSITY, M85.88 TECHNIQUE: [place] Horizon C densitometer analysis of left hip, lumbar spine and left forearm. Lat eral survey image of the thoracic and lumbar spine. COMPARISON: DX DEXA BONE DENSITY WITH AUGUSTIN from 06/16/2012 FINDINGS: Lateral view of the thoracic and lumbar spine shows no evidence of compression fractures. Bone mineral density measurements of the lumbar spine correspond to a total T-score of -2.3, in the osteopenic range. This represents a 4.9 percent decrease from 2012. Bone mineral density measurements of the left hip correspond to a total T-score of -2.5. The femora l neck T-score is -2.4. This is in the osteoporotic range. There has been a 12.2 percent decrease from 2012 Theleft forearm bone mineral density measurements correspond to a T-score of the distal 3rd of -2.2, in the osteopenic range. This represents a 9.5 percent decrease from 2012. IMPRESSION: Osteopenia of the lumbar spine and forearm. Mild osteoporosis of the left hip.
== END ==
PROVIDERS: PCP Internal Medicine; Visit Provider Nurse Practitioner Family
DX: Z13.820 Encounter for screening for osteoporosis; M85.89 Other specified disorders of bone density and structure, multiple sites
CPT/HCPCS: 77080

== ENCOUNTER 2023-09-21 09:39 | Outpatient (REF) | payer MEDICARE, SELFPAY ==
[2023-09-21 14:45] LABS: ALT 201 U/L (14-59); AST 115 U/L (15-37); Albumin 3.7 g/dL (3.4-5.0); Alkaline Phosphatase 307 U/L (46-116); Anion Gap 2.4 mmol/L (3-11); BUN 22 mg/dL (7-18); Bilirubin, Total 0.9 mg/dL (0.2-1.0); CO2 32.6 mmol/L (21.0-32.0); CREATININE 0.8 mg/dL (0.55-1.02); Calcium 9.2 mg/dL (8.5-10.1); Calculated LDL 71 mg/dL (<100); Chloride 105 mmol/L (98-107); Cholesterol 162 mg/dL (<200); Estimated GFR 79.22 (mL/min/1.73m2); Glucose 122 mg/dL (74-106); HDL Cholesterol 75 mg/dL (40-60); Potassium 4.6 mmol/L (3.5-5.1); Sodium 140 mmol/L (136-145); Total Protein 7.4 g/dL (6.4-8.2); Triglyceride 81 mg/dL (<150)
== END 2023-09-21 09:40 | disposition home or self-care (01) ==
LOC: NCHCN 09:39
PROVIDERS: PCP Internal Medicine; Visit Provider Nurse Practitioner Family
DX: I10 Essential (primary) hypertension (principal); E78.2 Mixed hyperlipidemia
CPT/HCPCS: 80053; 80061

== ENCOUNTER 2023-10-14 09:08 | Outpatient (REF) | payer MEDICARE, SELFPAY ==
[2023-10-14 15:12] LABS: ALT 140 U/L (14-59); AST 74 U/L (15-37); Albumin 3.5 g/dL (3.4-5.0); Alkaline Phosphatase 355 U/L (46-116); Anion Gap 7.1 mmol/L (3-11); BUN 21 mg/dL (7-18); Bilirubin, Total 1.1 mg/dL (0.2-1.0); CO2 29.9 mmol/L (21.0-32.0); CREATININE 0.9 mg/dL (0.55-1.02); Calcium 9.3 mg/dL (8.5-10.1); Chloride 105 mmol/L (98-107); Estimated GFR 68.77 (mL/min/1.73m2); Glucose 110 mg/dL (74-106); Potassium 5.1 mmol/L (3.5-5.1); Sodium 142 mmol/L (136-145); Total Protein 6.9 g/dL (6.4-8.2)
[2023-10-15 13:02] LABS: GGT 363 U/L (5-55)
== END 2023-10-14 09:09 | disposition home or self-care (01) ==
LOC: NCHCN 09:08
PROVIDERS: PCP Internal Medicine; Visit Provider Nurse Practitioner Family
DX: R74.8 Abnormal levels of other serum enzymes (principal)
CPT/HCPCS: 80053; 82977

== ENCOUNTER → 2023-10-18 00:57 | Outpatient (CLI) | payer MEDICARE, SELFPAY ==
--- NOTE | 2023-10-18 | DI.US_ITS ---
Exam(s) US ABDOMEN EXAM: US ABDOMEN CLINICAL HISTORY: ABNL LFT'S,R74.8,ABNL SERUM ENZYMES,R94.5 TECHNIQUE: Ultrasound abdomen performed using standard protocol. COMPARISON: No exams were available for comparison FINDINGS: LIVER: Normal size and echogenicity. No focal liver lesions are seen. GALLBLADDER: No evidence of cholelithiasis. No evidence of wall thickening. No pericholecystic fluid identified. LOMELI'S SIGN: Negative. BILIARY SYSTEM: No intrahepatic or extrahepatic biliary ductal dilation. KIDNEYS: Kidneys are symmetric in size. No evidence of renal calculi. No evidence of hydronephrosis. No renal mass or cyst identified. PANCREAS: Normal where visualized. SPLEEN: Not enlarged. ABDOMINAL AORTA AND IVC: Visualized portions normal caliber. ASCITES: None seen. IMPRESSION: Normal sonographic appearance of the upper abdomen. DATA REPOSITORY:
== END ==
PROVIDERS: PCP Internal Medicine; Visit Provider Nurse Practitioner Family
DX: R74.8 Abnormal levels of other serum enzymes (principal)
CPT/HCPCS: 76700

== ENCOUNTER → 2023-10-26 10:48 | Outpatient (BNVA) | payer MEDICARE, SELFPAY | PROVIDERS: PCP Nurse Practitioner Family; Referring Provider Internal Medicine; Visit Provider Nurse Practitioner Gerontology | DX: R31.29 Other microscopic hematuria (principal) | CPT/HCPCS: 51798; 81003; 99215 ==

== ENCOUNTER 2023-10-26 14:13 | Outpatient (REF) | payer MEDICARE, SELFPAY ==
[2023-10-26 18:00] LABS: Bilirubin Negative (Negative); Blood Trace-lysed (Negative); Clarity Clear (Clear); Glucose Negative (Negative); Ketones Negative (Negative); Leukocyte Esterase Negative (Negative); Nitrite Negative (Negative); Urobilinogen 0.2 mg/dL (Up to 0.2); pH 6.5 (5-8)
[2023-10-26 18:08] LABS: Bacteria Rare HPF (Negative); C & S Indicated? No; Casts Negative LPF (Negative); Crystals Negative HPF (Negative); Epithelial Cells Rare HPF (Negative); Mucus Negative (Negative); RBC 0-2 HPF (0-2); WBC Negative HPF (0-5)
== END 2023-10-26 14:14 | disposition home or self-care (01) ==
LOC: LBN 14:13
PROVIDERS: PCP Nurse Practitioner Family; Visit Provider Nurse Practitioner Gerontology
DX: R31.29 Other microscopic hematuria (principal)
CPT/HCPCS: 81003; 81015

== ENCOUNTER 2023-11-04 14:55 | Outpatient (REF) | payer MEDICARE, SELFPAY ==
[2023-11-04 14:49] LABS: ALT 72 U/L (14-59); AST 38 U/L (15-37); Albumin 3.5 g/dL (3.4-5.0); Alkaline Phosphatase 269 U/L (46-116); Bilirubin, Direct 0.2 mg/dL (0.0-0.2); Bilirubin, Total 0.8 mg/dL (0.2-1.0); Total Protein 6.9 g/dL (6.4-8.2)
== END 2023-11-04 14:56 | disposition home or self-care (01) ==
LOC: NCHCN 14:55
PROVIDERS: PCP Nurse Practitioner Family; Visit Provider Nurse Practitioner Family
DX: R74.8 Abnormal levels of other serum enzymes (principal)
CPT/HCPCS: 80076

== ENCOUNTER 2023-12-13 11:12 | Outpatient (REF) | payer MEDICARE, SELFPAY ==
[2023-12-13 15:52] LABS: ALT 31 U/L (14-59); AST 26 U/L (15-37); Albumin 3.7 g/dL (3.4-5.0); Alkaline Phosphatase 104 U/L (46-116); Bilirubin, Direct 0.2 mg/dL (0.0-0.2); Bilirubin, Total 1.2 mg/dL (0.2-1.0); Total Protein 7.2 g/dL (6.4-8.2)
== END 2023-12-13 11:13 | disposition home or self-care (01) ==
LOC: NCHCN 11:12
PROVIDERS: PCP Nurse Practitioner Family; Visit Provider Nurse Practitioner Family
DX: R74.01 Elevation of levels of liver transaminase levels (principal)
CPT/HCPCS: 80076

== ENCOUNTER 2024-09-14 11:17 | Outpatient (REF) | payer MEDICARE, SELFPAY ==
[2024-09-14 15:22] LABS: ALT 21 U/L (14-59); AST 18 U/L (15-37); Albumin 3.5 g/dL (3.4-5.0); Alkaline Phosphatase 98 U/L (46-116); BUN 21 mg/dL (7-18); Bilirubin, Total 0.53 mg/dL (0.2-1.0); CREATININE 0.9 mg/dL (0.55-1.02); Calcium 8.9 mg/dL (8.5-10.1); Chloride 105 mmol/L (98-107); Estimated GFR 68.35 (mL/min/1.73m2); Glucose 67 mg/dL (74-106); Potassium 4.6 mmol/L (3.5-5.1); Sodium 143 mmol/L (136-145); Total Protein 7.1 g/dL (6.4-8.2)
== END 2024-09-14 11:18 | disposition home or self-care (01) ==
LOC: NCHCN 11:17
PROVIDERS: PCP Nurse Practitioner Family; Visit Provider Nurse Practitioner Family
DX: I10 Essential (primary) hypertension (principal); E78.2 Mixed hyperlipidemia; R74.01 Elevation of levels of liver transaminase levels
CPT/HCPCS: 80053; 81003; 82043; 82570

== ENCOUNTER 2024-09-21 13:12 | Outpatient (REF) | payer MEDICARE, SELFPAY ==
[2024-09-21 15:53] LABS: Bilirubin Negative (Negative); Blood Trace-intact (Negative); Clarity Clear (Clear); Glucose Negative (Negative); Ketones Negative (Negative); Leukocyte Esterase Large (Negative); Nitrite Negative (Negative); Specific Gravity 1.015 (1.005-1.025); Urobilinogen 0.2 mg/dL (Up to 0.2); pH 7.5 (5-8)
[2024-09-21 16:13] LABS: Bacteria Few HPF (Negative); C & S Indicated? No/Sq. Contamination; Casts Negative LPF (Negative); Crystals Negative HPF (Negative); Epithelial Cells Many HPF (Negative); Mucus Negative (Negative); RBC 0-2 HPF (0-2)
[2024-09-21 16:17] LABS: COMMENT (LAB VIEW ONLY) 33.86 mg/dL; Microalb ug/mg Crea 18.3 ug/mg Cr
== END 2024-09-21 13:13 | disposition home or self-care (01) ==
LOC: NCHCN 13:12
PROVIDERS: PCP Nurse Practitioner Family; Visit Provider Nurse Practitioner Family
DX: I10 Essential (primary) hypertension (principal)
CPT/HCPCS: 81003; 81015; 82043; 82570

== ENCOUNTER 2024-11-07 02:21 | Outpatient (CLI) | payer MEDICARE, SELFPAY ==
--- NOTE | 2024-11-07 | DI.MAMMO_ITS ---
Exam(s) MAMMO SCREENING EXAM: MAMMO SCREENING CLINICAL HISTORY: SCREENING MAMMO Z12.39. TECHNIQUE: Bilateral full field digital CC and MLO mammographic images were obtained with 3D tomosyn thesis and utilizing computer aided detection (CAD). COMPARISON: Prior mammograms dating back to 2015 were reviewed. FINDINGS: There has been no significant change in the appearance and distribution of the fibroglandular tissue. Asymmetric density anteriorly in breast is unchanged from 2015. No CAD designations There are no new spiculated masses nor malignant appearing microcalcification groups. There is no significant architectural distortion nor skin thickening-retraction. IMPRESSION: No radiographic evidence of malignancy. BI-RADS Category 1 - Negative Breast Density - Category B - Scattered areas of fibroglandular density Breast density Category C or D implies that the patient has dense breast tissue. Dense breast tissue can make it harder to find cancer on a mammogram. Dense breast tissue is also associated with an incr eased risk of breast cancer. This information about the result of the mammogram report was provided to the patient to raise their awareness. Use this report when you speak with the patient about their risks for breast cancer, which includes their family history. At that time, you may recommend additional screening tests (Ultrasoun d or MRI) as these tests may add significant information. A negative radiographic report should not delay biopsy if a dominant or clinically suspicious mass is present. Up to ten percent of cancers are not identified on mammography. A negative report may reinforce clinical impression. Adenosis and dense breasts may obscure an underlying neoplasm. False positive reports average 6 to 10%. Patient will receive a letter notifying them of these results.
== END 2024-11-07 02:41 ==
PROVIDERS: PCP Nurse Practitioner Family; Visit Provider Nurse Practitioner Family
DX: Z12.31 Encounter for screening mammogram for malignant neoplasm of breast (principal); R92.323 Mammographic fibroglandular density, bilateral breasts
CPT/HCPCS: 77063; 77067

== ENCOUNTER 2024-11-23 00:36 | Outpatient (CLI) | payer MEDICARE, SELFPAY ==
--- NOTE | 2024-11-23 | DI.NM_ITS ---
APPROVED REPORT Exam: Exercise Treadmill Patient Location: Out-Patient Room/Bed: Stress Nurse: Savi Syed RN Ordering Provider:SCOTT JONES, Contact Number: [phone] BMI: 19.48 Baseline Rhythm: Sinus Rhythm Indications: NUR Medical History Medical History: Adjustment disorder with mixed anxiety and depressed mood, insomnia, HTN, angina pec toris, venous verices, sleep disorder, NUR Cardiac Medications: Multivitamin Allergies: Simvastatin Cardiac Risk Factors: Family hx, former smoker, HTN Previous Cardiac Procedures: None Pretest Chest Pain Characteristics: None Exercise History: Physically active Physical Disabilities: None Lung Sounds: Clear to auscultation Heart Sounds: Regular Stress Test Details Test: Exercise stress testing was performed using a Kemal protocol. Nuclear Acquisition: Rest Tc-99m/Stress Tc-99m 1 day Rest Isotope: Tc-99m Sestamibi. Dose: 10.0 Date: 11/23/2024 Injection Time: 1110 Stress Isotope: Tc-99m Sestamibi. Dose: 30.0 Date: 11/23/2024 Injection Time: 1325 HR Resting HR Supine: 78 bpm Max Heart Rate (APMHR): 149 bpm Resting HR Standin bpm Target HR (85% APMHR): 127 bpm Max HR Achieved: 133 bpm % of APMHR: 89 Recovery HR: 83 bpm HR response to stress: Normal HR response to stress BP Resting BP Supine: 156/68 mmHg Resting BP Standin/90 mmHg Max BP: 168/90 mmHg Recovery BP: 142/84 mmHg BP response to stress: Normal blood pressure response to stress. ECG Resting ECG: Sinus Rhythm Stress ECG: Sinus Tachycardia ST Change: No significant ST segment changes noted Arrhythmia: Rare PAC Recovery ECG: Sinus Rhythm Recovery ST Change: No significant ST segment changes noted Clinical Reason for Termination: Target HR Achieved Stress Symptoms: None Exercise duration: 05 min14 sec Highest Stage Reached: Stage 2: 2.5 mph at 12% grade. Exercise capacity: 7.05 METs Angina Score: None Lynne Treadmill Score: 4.8 Rate Pressure Product: 26486 Stress ECG Conclusion 1. Resting electrocardiogram was normal 2. Patient exercised on the Kemal protocol and completed a workload of 7 METS 3. Normal heart rate and blood pressure response to exercise. The patient achieved 89% of maximal pr edicted heart rate for age 4. There was no electrocardiographic evidence of myocardial ischemia 5. There were no dysrhythmias 6. See MPI report Lynne Treadmill Score is 4.8 which is Moderate risk. Stress Test Summary STAGE Time (mins) Speed (mph) Grade (%) HR BP SpO2 SYMPTOMS METS Supine 78 156/90 97% Standing 82 150/68 1 3 1.7 10 125 168/90 4.5 2 6 2.5 12 133 7 1 min recovery 114 158/82 3 min recovery 92 160/98 96% 6 min recovery 83 142/84 MPI Conclusion Myocardial perfusion is normal. There is no ischemia or evidence of prior infarction Ejection fraction is 74% with normal wall motion
[2024-11-23] MEDS: Regadenoson 0.4 MG/5 ML SYR IVP (13:34)
== END 2024-11-23 00:56 ==
LOC: DI 00:36
PROVIDERS: PCP Nurse Practitioner Family; Visit Provider Family Medicine
DX: R06.09 Other forms of dyspnea (principal)
CPT/HCPCS: 78452; 93016; 93018; 93017; J2785

== ENCOUNTER 2025-02-12 12:39 | Outpatient (REF) | payer MEDICARE, SELFPAY ==
[2025-02-13 11:06] LABS: Lyme Ab w Rflx to Lyme Confirm Negative (Negative)
[2025-02-14 16:15] LABS: Anaplasma phagocytophilum Negative (Negative); B. miyamotoi PCR Negative (Negative); Babesia divergens/MO-1 Negative (Negative); Babesia duncani Negative (Negative); Babesia microti Negative (Negative); Ehrlichia chaffeensis Negative (Negative); Ehrlichia ewingii/canis Negative (Negative); Ehrlichia muris eauclairensis Negative (Negative)
== END 2025-02-12 12:40 | disposition home or self-care (01) ==
LOC: NCHCN 12:39
PROVIDERS: PCP Nurse Practitioner Family; Visit Provider Nurse Practitioner Family
DX: L28.2 Other prurigo (principal)
CPT/HCPCS: 87798; 86618

== ENCOUNTER 2025-06-28 14:45 | Outpatient (CLI) | payer MEDICARE, SELFPAY ==
--- NOTE | 2025-06-28 10:15 | DI.RAD_ITS ---
Exam(s) XR KNEE LT 4V AP,LAT,ANU,PAT EXAM: XR KNEE LT 4V AP,LAT,ANU,PAT CLINICAL HISTORY: eval L knee pain. TECHNIQUE: 2D digital imaging was performed of the left knee. Four images were obtained. Merchant,AP, lateral and PA tunnel views were obtained. COMPARISON: CR XR KNEE LT 3V AP,LAT,ANU from 12/30/2020 FINDINGS: BONES: No acute fracture is present. No bony destructive lesion is seen. JOINTS: There is moderate narrowing of the femoral tibial joints. There is a small joint effusion. There osteophytes in all 3 joint compartments. No loose body. SOFT TISSUE: Normal. IMPRESSION: Osteoarthritis of the left knee. DATA REPOSITORY: RADIATION DOSE DELIVERED:
== END 2025-06-28 14:46 | disposition home or self-care (01) ==
LOC: DIORS 14:46
PROVIDERS: PCP Nurse Practitioner Family; Referring Provider Nurse Practitioner Family; Visit Provider Student in an Organized Health Care Education/Training Program
DX: M17.12 Unilateral primary osteoarthritis, left knee (principal); M25.562 Pain in left knee
CPT/HCPCS: 99213; 20610; J1010; 73564